=== PATIENT | male | born 1995 | race Caucasian/White ===

== ENCOUNTER 2018-03-23 15:38 | Emergency (ER) | payer OTHER ==
[2018-03-23] MEDS: LIDOCAINE 1% (MDV) 10 ML INJ INJ (16:26)
== END 2018-03-23 17:54 | disposition home or self-care (01) ==
LOC: FTE 15:38
DX: S61.211A Laceration without foreign body of left index finger without damage to nail, initial encounter (principal); F17.210 Nicotine dependence, cigarettes, uncomplicated; W25.XXXA Contact with sharp glass, initial encounter; Y92.9 Unspecified place or not applicable
CPT/HCPCS: 12001; 73130-LT; 99283-25

== ENCOUNTER 2018-03-25 13:29 | Emergency (ER) | payer OTHER | END 2018-03-25 14:55 | disposition home or self-care (01) | LOC: FTE 13:29 | DX: Z48.01 Encounter for change or removal of surgical wound dressing (principal) | CPT/HCPCS: 99281; Z7502 ==

== ENCOUNTER 2018-03-31 13:53 | Emergency (ER) | payer OTHER | END 2018-03-31 14:41 | disposition home or self-care (01) | LOC: FTE 13:53 | DX: Z48.02 Encounter for removal of sutures (principal); Z87.891 Personal history of nicotine dependence | CPT/HCPCS: 99281; Z7502 ==